=== PATIENT | female | born 2000 | race Caucasian/White ===

== ENCOUNTER 2025-02-05 16:20 | Outpatient (CLI) | payer BC, SELFPAY | END 2025-02-05 16:21 | disposition home or self-care (01) | LOC: FRMREF 16:20 | PROVIDERS: PCP Family Medicine; Visit Provider Family Medicine | DX: Z12.4 Encounter for screening for malignant neoplasm of cervix (principal) | CPT/HCPCS: 87624; 87625; 88141; 88142 ==